=== PATIENT | female | born 1985 | race Hispanic/Latino ===

== ENCOUNTER 2023-04-16 12:18 | Emergency (ER) | payer OTHER ==
[~2023-04-16] VITALS: Ht 152.4 cm; Wt 78.9 kg
[2023-04-16 13:06] LABS: HCG,QUALITATIVE URINE NEGATIVE (NEGATIVE)
[2023-04-16 13:11] LABS: APPEARANCE,URINE CLOUDY (CLEAR); BILIRUBIN,URINE NEGATIVE (NEGATIVE); COLOR,URINE LIGHT-YELLOW (YELLOW); GLUCOSE, URINE (UA) NEGATIVE (NEGATIVE); KETONES,URINE NEGATIVE (NEGATIVE); LEUKOCYTE ESTERASE ,URINE 75 Leu/uL (NEGATIVE); NITRATE,URINE NEGATIVE (NEGATIVE); OCCULT BLOOD,URINE NEGATIVE (NEGATIVE); PH,URINE 6.5 (5.0-8.0); PROTEIN,URINE 10 mg/dL (NEGATIVE); UROBILINOGEN,URINE 0.2 mg/dL (0.2-1.0)
[2023-04-16 13:22] LABS: BASOPHILS % (AUTO) 0.6 % (0.0-5.0); EOSINOPHILS % (AUTO) 2.1 % (0.0-8.0); HEMATOCRIT 39.6 % (36-48); LYMPHOCYTES % (AUTO) 17.3 % (21.0-51.0); MEAN CORPUSCULAR HEMOGLOBIN 23.1 pg (27.0-33.0); MEAN CORPUSCULAR HGB CONC 29.3 g/dL (32.0-36.0); MEAN CORPUSCULAR VOLUME 78.9 fL (79-99); MONOCYTES % (AUTO) 9.7 % (3.0-13.0); PLATELET COUNT (AUTO) 238 K/uL (130-400); RED BLOOD CELL COUNT(AUTO) 5.02 MIL/uL (4.00-5.50); RED CELL DISTRIBUTION WIDTH 17.7 % (11.0-15.5); WHITE BLOOD COUNT (AUTO) 10.1 K/uL (4.8-10.8)
[2023-04-16 13:31] LABS: BACTERIA,URINE FEW /HPF (None Seen); MUCUS,URINE MOD LPF (None Seen); SQUAMOUS EPITHELIAL CELL,UR MANY /HPF (0-2); YEAST,URINE BUDDING FEW /HPF (None Seen)
[2023-04-16 13:49] LABS: CREATININE 0.6 mg/dL (0.5-1.5)
[2023-04-16 13:58] LABS: ALBUMIN 3.8 g/dL (3.5-5.0); TOTAL PROTEIN, SERUM 7.3 g/dL (6.0-8.3)
[2023-04-16] MEDS ORDERED: KETOROLAC 30MG VIAL (30MG/ML) IVP ONE (14:00)
[2023-04-16] MEDS ORDERED: IBUP-2070 PO (14:59)
[2023-04-16 15:17] VITALS: BP 135/78
== END 2023-04-16 15:19 | disposition home or self-care (01) ==
LOC: EDH 12:18
DX: K80.20 Calculus of gallbladder without cholecystitis without obstruction (principal); Z98.890 Other specified postprocedural states
CPT/HCPCS: 99285; 96374; 76705; 80053; 83690; 85025; 87088; 81001; 81025; 36415; J1885